=== PATIENT | male | born 1985 | race Caucasian/White ===

== ENCOUNTER → 2020-10-19 | Day surgery (SDC) | payer OTHER ==
[~2020-10-19] VITALS: Ht 172.7 cm; Wt 117.9 kg
[~2020-10-19] MED LIST: METFORMIN HCL1000 MG PO; PERCOCET 5-3251 EACH PO; PRINIVIL10 MG PO
== END | disposition home or self-care (01) ==
LOC: FAS 08:21
DX: S56.511A Strain of other extensor muscle, fascia and tendon at forearm level, right arm, initial encounter (principal); M77.11 Lateral epicondylitis, right elbow; X58.XXXA Exposure to other specified factors, initial encounter; K21.9 Gastro-esophageal reflux disease without esophagitis; I10 Essential (primary) hypertension; E11.9 Type 2 diabetes mellitus without complications; Z96.622 Presence of left artificial elbow joint; Z79.84 Long term (current) use of oral hypoglycemic drugs; Z20.822 Contact with and (suspected) exposure to COVID-19
CPT/HCPCS: J0690; J1100; J2250; J2405; J2704; J3010; J7120